=== PATIENT | male | born 1990 | race Caucasian/White ===

== ENCOUNTER 2018-11-08 21:28 | Emergency (ER) | payer SELFPAY ==
[~2018-11-08] VITALS: Ht 188 cm; Wt 77.2 kg
[2018-11-08 21:34] VITALS: BP 120/90
[2018-11-08] MEDS ORDERED: HYDROcodone/acetaminophen 10/325mg tab PO ONE (22:05)
[2018-11-08] MEDS ORDERED: ONDA4TAB6 PO (23:22)
[2018-11-08] MEDS ORDERED: HYDR-3965 PO (23:22)
[2018-11-08] MEDS ORDERED: ondansetron 4mg rapidly disintigrating tab PO ONE (23:25)
== END 2018-11-08 23:40 | disposition home or self-care (01) ==
LOC: ER 21:29
DX: S82.832A Other fracture of upper and lower end of left fibula, initial encounter for closed fracture (principal); Z79.899 Other long term (current) drug therapy; W17.89XA Other fall from one level to another, initial encounter; Y93.67 Activity, basketball; Y92.89 Other specified places as the place of occurrence of the external cause; Y99.8 Other external cause status
CPT/HCPCS: 29505; 73564; 99283; J2405